=== PATIENT | male | born 1960 | race Two or more races ===

== ENCOUNTER → 2024-12-13 | Emergency (ER) | payer OTHER ==
[~2024-12-13] VITALS: Ht 175.3 cm; Wt 86.2 kg
== END | disposition left against medical advice (07) ==
LOC: ER 13:57
DX: Z53.21 Procedure and treatment not carried out due to patient leaving prior to being seen by health care provider (principal)

== ENCOUNTER → 2025-04-08 | Emergency (ER) | payer OTHER ==
[~2025-04-08] VITALS: Ht 175.3 cm; Wt 86.2 kg
== END | disposition left against medical advice (07) ==
LOC: ER 00:54
DX: Z53.21 Procedure and treatment not carried out due to patient leaving prior to being seen by health care provider (principal)